=== PATIENT | female | born 1995 | race Caucasian/White ===

== ENCOUNTER 2022-05-15 15:18 | Emergency (ER) | payer OTHER ==
[~2022-05-15] VITALS: Ht 121.9 cm; Wt 35.4 kg
[2022-05-15 15:25] VITALS: BP 158/86
--- NOTE | 2022-05-15 16:30 | NUR ---
PT C/O HEADACHE X2 WEEK PROGRESSIVELY GETTING WORSE. HX OF [employer] SHUNT.
[2022-05-15] MEDS ORDERED: KETOROLAC 15 MG/ML VIAL IM ONE (18:00)
[2022-05-15] MEDS ORDERED: ONDANSETRON 4 MG/2 ML VIAL IM ONE (18:00)
[2022-05-15 18:03] LABS: BASOPHILS % (AUTO) 0.7 % (0.0-2.0); EOSINOPHILS # (AUTO) 0.2 K/uL (0-0.4); EOSINOPHILS % (AUTO) 2.5 % (0.0-4.0); HEMATOCRIT 40.3 % (36-48); LYMPHOCYTES # (AUTO) 1.8 K/uL (2.5-16.5); LYMPHOCYTES % (AUTO) 28.4 % (20.5-51.1); MEAN CORPUSCULAR HEMOGLOBIN 32 pg (27-31); MEAN CORPUSCULAR HGB CONC 35 g/dL (33-37); MEAN CORPUSCULAR VOLUME 93.4 fL (80-94); MONOCYTES # (AUTO) 0.6 K/uL (0.8-1.0); MONOCYTES % (AUTO) 8.5 % (1.7-9.3); NEUTROPHILS # (AUTO) 3.9 K/uL (1.8-7.7); NEUTROPHILS % (AUTO) 59.9 % (42.2-75.2); PLATELET COUNT (AUTO) 354 K/uL (140-450); RED BLOOD CELL COUNT(AUTO) 4.32 MIL/uL (4.20-5.40); RED CELL DISTRIBUTION WIDTH 11.9 % (11.6-13.7); WHITE BLOOD COUNT (AUTO) 6.5 K/uL (4.8-10.8)
[2022-05-15 18:22] LABS: ALBUMIN 3.8 g/dL (3.4-5.0); ANION GAP 11.9 (8-16); CREATININE 0.6 mg/dL (0.6-1.3); POTASSIUM 3.9 mmol/L (3.5-5.1); TOTAL BILIRUBIN 0.7 mg/dL (0.0-1.0)
[2022-05-15] MEDS ORDERED: HYDROmorphone PFS 2 MG/ML SYR IM ONE (18:30)
--- NOTE | 2022-05-15 18:39 | NUR ---
PT TAKEN TO CT
[2022-05-15] MEDS ORDERED: METOCLOPRAMIDE 10 MG/2 ML INJ VIAL IVP ONE (19:15)
[2022-05-15] MEDS ORDERED: HYDROmorphone PFS 2 MG/ML SYR IVP ONE (19:15)
[2022-05-15] MEDS ORDERED: ACET-8386 PO (20:15)
[2022-05-15] MEDS ORDERED: ONDA-188 PO (20:18)
[2022-05-15 20:23] VITALS: BP 129/79
== END 2022-05-15 20:24 | disposition home or self-care (01) ==
LOC: MED 15:18
DX: T85.09XA Other mechanical complication of ventricular intracranial (communicating) shunt, initial encounter (principal); G89.29 Other chronic pain; R51.9 Headache, unspecified; Z86.69 Personal history of other diseases of the nervous system and sense organs; Z87.39 Personal history of other diseases of the musculoskeletal system and connective tissue; Z79.899 Other long term (current) drug therapy; Z88.5 Allergy status to narcotic agent; Z88.1 Allergy status to other antibiotic agents
CPT/HCPCS: 36415; 70450; 74018; 80053; 85025; 96372; 96374; 96375; 99285; J1170; J1885; J2405; J2765